=== PATIENT | female | born 2000 | race African-American/Black ===

== ENCOUNTER 2022-06-16 09:41 | Emergency (ER) | payer OTHER ==
[~2022-06-16 09:41] MED LIST: IBUPROFEN800 MG PO
[2022-06-16] MEDS ORDERED: NAPROXEN500 MG PO (12:16)
[2022-06-16] MEDS ORDERED: NORCO 5-325 TA1 EACH PO (12:16)
== END 2022-06-16 12:43 | disposition home or self-care (01) ==
LOC: FER 09:41
DX: S76.312A Strain of muscle, fascia and tendon of the posterior muscle group at thigh level, left thigh, initial encounter (principal); S70.12XA Contusion of left thigh, initial encounter; Y04.0XXA Assault by unarmed brawl or fight, initial encounter
CPT/HCPCS: 73552